=== PATIENT | male | born 1985 | race Caucasian/White ===

== ENCOUNTER 2019-12-06 12:03 | Emergency (ER) | payer OTHER, MEDICAID ==
[~2019-12-06] VITALS: Ht 188 cm; Wt 124.7 kg
[~2019-12-06 12:03] MED LIST: ADULT LOW DOSE81 MG PO; BLOOD GLUCOSE1 EAC7 MC; FLAX OIL1000 MG PO; GEODON20 MG PO; GLUCOPHAGE500 MG PO; GLYBURIDE 5 MG T5 M1 PO; INSULIN SYRING1 EA57; LEVEMIR; LISINOPRIL20 MG PO; LISINOPRIL5 MG PO; LOPID600 MG PO; NOVOLOG100 UNIT/1 SQ; STOOL SOFTENER50 MG PO; SYNTHROID; VICTOZA0.6 MG/0.1 SQ; VISION VITAMIN1 EACH PO; VITAMINC500 PO
[2019-12-06] MEDS ORDERED: JANUVIA25 MG PO (12:17)
[2019-12-06] MEDS ORDERED: TRULICITY0.75 MG/0. (12:17)
[2019-12-06 12:50] LABS: BE -5.1 mmol/L (-2 to +3); HEMATOCRIT 50.6 % (42.0-52.0); HEMOGLOBIN 17.4 gm/dL (14.0-18.0); MCH 27.9 pg (26.0-34.0); MCHC 34.3 g/dL (28.0-37.0); MCV 81.5 fL (80.0-100.0); MPV 7.5 fl. (7.2-11.1); NUCLEATED RBCS 0 /100WBC; PCO2 VENOUS 43.4 mmHg (41.0-51.0); PLATELET COUNT* 377 thou/uL (150-400); PO2 VENOUS 49.1 mmHg (35.0-45.0); RBC 6.21 mil/uL (4.50-6.00); RDW-CV 14.8 % (10.5-14.5); WBC 11.7 thou/uL (4.0-11.0)
[2019-12-06 12:58] LABS: CALCIUM 10.3 mg/dL (8.5-10.1); CREATININE 1.2 mg/dL (0.6-1.3); POTASSIUM 4.3 mmol/L (3.5-5.1)
[2019-12-06 13:03] LABS: ALBUMIN 4.7 g/dL (3.4-5.0); TOTAL BILIRUBIN 0.8 mg/dL (<0.1-1.0); TOTAL PROTEIN 9.8 g/dL (6.4-8.2)
[2019-12-06 13:08] LABS: INFLUENZA A ANTIGEN Negative (Negative); INFLUENZA B ANTIGEN Negative (Negative)
[2019-12-06 13:10] LABS: ABSOLUTE LYMPHOCYTES 1.2 thou/uL (0.8-5.3); ABSOLUTE MONOCYTES 0.7 thou/uL (0.0-1.2); ABSOLUTE NEUTROPHILS 9.8 thou/uL (1.6-8.1); PLATELET ESTIMATE ADEQUATE
[2019-12-06] MEDS ORDERED: ZOFRAN ODT4 MG SUBLING (13:56)
[2019-12-06 14:20] VITALS: BP 132/96
== END 2019-12-06 14:21 | disposition home or self-care (01) ==
LOC: M.ERS 12:03
PROVIDERS: Family Medicine
DX: R11.2 Nausea with vomiting, unspecified (principal); I10 Essential (primary) hypertension; F90.9 Attention-deficit hyperactivity disorder, unspecified type; F84.0 Autistic disorder